=== PATIENT | female | born 1975 | race Caucasian/White ===

== ENCOUNTER → 2021-09-29 | Outpatient (CLI) | payer OTHER ==
[~2021-09-29] MED LIST: BUDE10.2 IH; ETHI1TAB31 PO; FEXO180T81 PO; LISI10TA16 PO; OMEP20TA91 PO; SEMA0.25 SQ; TRIA10.8 NS; VENTOLIN HFA18 GM INH
--- NOTE | 2021-09-29 16:30 | PDOC1 ---
INITIAL PAIN CONSULT DATE OF SERVICE: DOS: DATE: 09/29/21 TIME: 16:23 CHIEF COMPLAINT: Chief Complaint: Right posterior hip and lower extremity pain HISTORY OF PRESENT ILLNESS: 46-year-old female presents with history of pain in the right posterior "hip" with radiating pain into the lateral aspect of the lower leg and into the top of the foot patient reports has been this way since starting in June 2021 no specific injury or accident that she is aware of but her 13-year-old daughter had broken her humerus and she was helping her significantly getting in and out of the tub helping with daily activities and having to lift her to some extent and twisting with pressure on the right side of her body with doing these activities to help her daughter. Patient reports that is about the time the pain began and since that time is not significantly painful in the right side of the low back and hip as well as in the right lateral lower leg and top of the foot patient reports is worse with standing walking changing positions sitting in a car for prolonged periods with using her right foot to control the pedals patient reports the pain in the back is constant and sharp in the posterior hip and superior gluteus throbbing with tingling pain in the lower leg radiating the lower leg as well patient reports better with sitting or laying down generally does not awaken her from sleep at night does affect her bowel bladder control does affect her ability to walk she is not use any assistive devices however patient has had physical therapy through September 15 of this year with some improvement but no long-lasting improvement also is doing exercises on her own at home as well taking ibuprofen which does help significantly about 50% she takes 800 mg. Patient had some x-rays of the lumbar spine showing unremarkable lumbar spine right hip shows negative findings as well as normal-appearing joint spaces. Patient rates her disability rating 0-10 10 being the worst as a 6 with family house possibilities 5 with recreation to a social activity 1 with self- care and 0 with other activities. Patient reports no loss of motor function but some fatigability in the right leg with standing and walking more than 15 to 20 minutes. PAST MEDICAL HISTORY: PMH: Hypertension PREVIOUS SURGERIES: Past Surgical Hx: Sinus surgery x2, cyst excision 2011 CURRENT MEDICATIONS: Current Meds: Active Scripts Medications Dose Route/Sig Max Daily Dose Days Date Category Ventolin Hfa Inhaler (Albuterol Sulfate) 18 Gm Hfa.aer.ad 2 Puff INH Q4HRS PRN 09/29/21 Reported Symbicort 160-4.5 Mcg Inhaler (Budesonide/Formoterol Fumarate) 10.2 Gm Hfa.aer.ad 2 Puff IH BID 09/29/21 Reported Ozempic (Semaglutide) 0.25 Mg/0.2 Ml Pen.injctr 0.5 Mg SQ WEEKLY 09/29/21 Reported Nasacort (Triamcinolone Acetonide) 10.8 Ml Aurora 55 Mcg NS DAILY 30 09/29/21 Reported Drospirenone-Ee 3-0.02 mg Tab (Ethinyl Estradiol/Drospirenone) 1 Each Tablet 1 Tab PO DAILY 28 09/29/21 Reported Hillary Allergy (Fexofenadine Hcl) 180 Mg Tablet 0.5 Tab PO DAILY 14 09/29/21 Reported Omeprazole 20 Mg Tablet.dr 30 Mg PO DAILY 09/29/21 Reported Lisinopril 10 Mg Tablet 1 Tab PO DAILY 09/29/21 Reported FAMILY HISTORY: Family Hx: No major medical problems or conditions that she is aware of. SOCIAL HISTORY: Social Hx: Patient drinks 1 alcoholic drink a week does not smoke not use any illegal illicit recreational drugs is lives with her spouse has 2 children living at home lives locally in [place] REVIEW OF SYSTEMS: ROS: Positive for those items mentioned in history of present illness, all systems are reviewed, otherwise negative ,and are complete full and well-documented on patient's chart. PHYSICAL EXAM: VS: Blood pressure is 142/85 pulse 90 respirations 18 temperature is 97.8 F height is 5 foot 5 inches weight is 236 pounds. PE: PHYSICAL EXAMINATION: GENERAL: The patient is awake, alert, oriented, appropriate, very pleasant in demeanor HEENT: Shows normocephalic, atraumatic. Extraocular movements are intact and symmetrical. Oral cavity: Mucous membranes moist and pink. Dentition is intact. NECK: Shows anterior throat supple without palpable lymphadenopathy noted. Swal low reflex symmetrical. CHEST: Shows normal on inspection. Breath sounds are clear bilaterally, no rales or rhonchi auscultated. HEART: Shows S1, S2 clear. No murmurs auscultated. ABDOMEN: Soft, nontender, nondistended. No palpable organomegaly is noted. BACK: Shows spine grossly in the midline. Normal-appearing cervical lordotic curvature. There is slightly increased thoracic kyphosis, some minor flattening of the lumbar lordotic curvature. Lumbar paraspinous muscles show symmetrical on inspection, on palpation shows some moderate tenderness diffusely throughout the upper, middle and lower distribution of the paraspinous muscles bilaterally and also into the lower thoracic paraspinous musculature, firm and tender, but without specific trigger points, without radiation of pain. The patient has good rotational motion of the lumbar spine, both laterally as well as extension and flexion without significant difficulty. Patient has significant tenderness over the right posterior superior iliac spine as well as the superior aspect of the sacroiliac joint. Left side is nontender. EXTREMITIES: Lower extremities show deep tendon reflexes 2+ in the patellar and tendo calcaneus tendons. Motor exam is 5 on a scale of 5 with right dorsiflexion, extension, quadriceps and hamstring flexion and 5/5 on the left. Peripheral pulses are 1+ posterior tibial. No peripheral edema is noted bilat erally. Lower extremities are warm and dry to touch, equal in color and appearance. Straight leg raise noted to be negative bilaterally. Gaenslen's and Garry's maneuvers are positive on the right, negative on the left. Sacroiliac compression test is positive on the right but negative on the left as well. The patient is able to stand, stand on her toes does report some pain w ith first getting up out of a chair but does so without assistance and walks with a normal-appearing gait. SKIN: Shows warm and dry, good turgor. No edema. No sores, rashes or bruising throughout. IMPRESSION: Impression: 46-year-old female with 3-month history pain right posterior hip as well as into the right lower extremity consistent with sacroiliitis of the right sacroiliac joint. X-ray studies as noted Hypertension Plan: Options were discussed with the patient including continued physical therapies medication management and interventional techniques. Patient like to pursue interventional techniques. We discussed a right sacroiliac joint injections description as well as anatomical models to describe the procedure. Patient will wait for preauthorization with her insurance provider once obtained we will have her return for right sacroiliac joint injection with fluoroscopic guidance. The meantime, patient will continue with stretching and strength exercises as well as oral analgesics as currently. JASON CAO MD September 29, 2021 16:30
== END | disposition home or self-care (01) ==
LOC: PNCL 13:20
PROVIDERS: ATTEND Anesthesiology
DX: M25.551 Pain in right hip (principal); I10 Essential (primary) hypertension; Z79.899 Other long term (current) drug therapy
CPT/HCPCS: 99205; G0463